=== PATIENT | female | born 1980 | race Caucasian/White ===

== ENCOUNTER 2025-07-30 08:36 | Emergency (ER) | payer MEDICAID ==
[~2025-07-30] VITALS: Ht 167.6 cm; Wt 82.0 kg
[2025-07-30 08:40] VITALS: O2SAT 100
[2025-07-30] MEDS: TETANUS, DIPHTHERIA, PERTUSSIS VAC/PF 0.5ML (>10YR OLD) IM ONE (09:57)
[2025-07-30] MEDS: KETOROLAC 15MG/ML VIAL IM ONE (09:58)
[2025-07-30] MEDS: LIDOCAINE HCL/EPINEPHRINE 1%-EPI 1:100,000 20ML VIAL INFIL ONE (10:34)
[2025-07-30] MEDS ORDERED: BO1 TP (12:37)
[2025-07-30] MEDS ORDERED: NAPR-1486 MT (12:37)
[2025-07-30] MEDS ORDERED: AMOX1TAB16 MT (12:37)
[2025-07-30 13:06] VITALS: BP 122/72; PULSE 99; RESP 15; TEMP 36.8; O2SAT 100
== END 2025-07-30 13:13 | disposition home or self-care (01) ==
LOC: ER 08:36
DX: S61.532A Puncture wound without foreign body of left wrist, initial encounter (principal); Z79.1 Long term (current) use of non-steroidal anti-inflammatories (NSAID); W54.0XXA Bitten by dog, initial encounter; Y93.89 Activity, other specified; Y92.89 Other specified places as the place of occurrence of the external cause; Y99.8 Other external cause status
CPT/HCPCS: 99284; 90715; 12002; 90471; 96372; J1885